=== PATIENT | female | born 2000 | race Caucasian/White ===

== ENCOUNTER 2023-02-01 21:34 | Emergency (ER) | payer OTHER, SELFPAY ==
[2023-02-01 22:01] VITALS: BP 131/76; PULSE 56; RESP 18; TEMP 36.6; O2SAT 98; BMI 36.2
[2023-02-01 22:45] LABS: Ur HCG Qualitative* Negative (Negative)
[2023-02-01 22:48] LABS: Bilirubin Urine Negative (Negative); Blood Urine Negative (Negative); Color Urine Yellow (Yellow); Glucose Urine Negative (Negative); Ketones Urine 4+ (Negative); Leukocyte Esterase Urine Negative (Negative); Nitrite Urine Negative (Negative); Protein Urine 1+ (Negative); Urobilinogen Urine 0.2 (0.2-1.0); pH Urine 8.5 (5.0-8.5)
[2023-02-01 22:52] LABS: Amphetamine Screen Urine Negative (Negative); Barbiturate Screen Urine Negative (Negative); Benzodiazepines Screen Urine Negative (Negative); Cannabinoid Screen Urine POSITIVE (Negative); Cocaine Screen Urine Negative (Negative); Methadone Screen Urine Negative (Negative); Methamphetamines Screen Urine Negative (Negative); Opiate Screen Urine Negative (Negative); Oxycodone Screen Urine Negative (Negative); Phencyclidine Screen Urine Negative (Negative); Tricyclic Antidepressant Urine Negative (Negative)
[2023-02-01 22:53] LABS: Appearance Urine Clear (Clear)
--- NOTE | 2023-02-01 22:55 | ED_ITS ---
HPI - Abdominal Pain General Date Seen: 02/01/23 Chief Complaint: Abdominal Pain Stated Complaint: stomach pains, vomitting Time Seen by Provider: 02/01/23 22:11 Source: patient and other (Significant other) Mode of arrival: ambulatory Limitations: no limitations History of Present Illness HPI narrative: Patient is a 22-year-old female who presents here with a 4-5 hour history of vomiting, she has vomited approximately 6 times, she feels sweaty, describes pain in her epigastric that radiates up into her chest. She is not vomiting up blood, does have a history of previous gastric sleeve surgery, she did have a normal bowel movement today, but feels maybe a on last few days she has been constipated. No history of fevers chills, but has felt chilled, no dysuria frequency associated with this, Other significant history of a cholecystectomy, she has been seen before at other hospitals for this min told that she has hyperemesis cannabis. She however disputes this diagnosis. When I asked her is a possible she is she said yes. Uses occasional alcohol he uses cannabis. But no other drugs. MD elicited complaint: abdominal pain Onset (ago): hour(s) Pain Consistency: constant Location: epigastric Severity: severe Quality: cramping, stabbing and fullness Radiation: none Migration to: no migration Exacerbating factors: movement Associated symptoms: nausea and vomiting Related Data Patient : No Home Medications Medication Instructions Recorded Confirmed desvenlafaxine succinate 50 mg 50 mg PO DAILY 02/01/23 02/01/23 tablet,extended release 24 hr omeprazole 40 mg capsule,delayed 40 mg PO DAILY 02/01/23 02/01/23 release Allergies Allergy/AdvReac Type Severity Reaction Status Date / Time NSAIDS (Non-Steroidal AdvReac Verified 02/01/23 22:03 Anti-Inflamma Review of Systems Status of ROS Reports: 10 or more systems reviewed and unremarkable except as noted in History and below PFSH PFSH Social History Smoking Status: Never smoker Do you use any of these nicotine containing products: None Second hand tobacco smoke exposure: No How often do you have a drink containing alcohol: never How often do you have six or more drinks on one occasion: Never AUDIT-C Alcohol total score: 0 Non-prescribed substance use: marijuana (any form) Non-prescribed substance use details: smokes marijuana daily; aware that this causes her to have hyperemesis service: No Exam Narrative: Exam Narrative: Patient is seen in room 2, she is sweaty, and find a comfortable position. Her pupils equal round reactive to light her TMs are normal oropharynx is normal her neck is supple, her chest is good air entry bilaterally heart sounds are normal her abdomen is soft, and doughy, there is no evidence of any significant peritoneal signs, and her bowel sounds are quiet. She is not distended. No CVA tenderness, previous laparoscopic portals are well healed. She moves all extremities independently and well. Skin reveals no petechiae rashes. Const: Vital Signs, click to edit/add: Vital Signs - 24 hr 02/01/23 22:01 Temperature 97.9 F Pulse Rate [Left P ulse Oximeter] 56 L Respiratory Rate 18 Blood Pressure [Le ft Upper Arm] 131/76 Pulse Oximetry 98 Oxygen Delivery Me thod Room Air Documenting provider has reviewed patient's vital signs: yes Course Course ED Course: I went back in and discussed with the patient, her laboratory was shows that she has just a slightly elevated lactate, she feels much improved in a actually would like to go home, we did have the radiology read back yet, but I did not see any acute issues associated with the radiology flat and upright abdominal film and chest x-ray. Given her marvelous response to the treatment, makes me feel that this is indeed hyperemesis cannabis syndrome. I discussed with her that she needs to stop using marijuana as this will reoccur for sure Unfortunately due to the dizziness the ER was not able to get the discharge data and right away in 15 minutes later she walked out of the ER. Without the discharge information Vital Signs Vital signs: Initial Vital Signs Temperature 97.9 F 02/01/23 22:01 Temperature Source Temporal Artery Scan 02/01/23 22:01 Pulse Rate 56 L 02/01/23 22:01 Respiratory Rate 18 02/01/23 22:01 Blood Pressure 131/76 02/01/23 22:01 Blood Pressure Mean 94 02/01/23 22:01 Blood Pressure Position Sitting 02/01/23 22:01 Pulse Oximetry 98 02/01/23 22:01 Oxygen Delivery Method Room Air 02/01/23 22:01 Vital Signs Temperature 97.9 F 02/01/23 22:01 Pulse Rate 56 L 02/01/23 22:01 Respiratory Rate 18 02/01/23 22:01 Blood Pressure 131/76 02/01/23 22:01 Pulse Oximetry 98 02/01/23 22:01 Oxygen Delivery Method Room Air 02/01/23 22:01 Temperature 97.9 F 02/01/23 22:01 Pulse Rate 56 L 02/01/23 22:01 Respiratory Rate 18 02/01/23 22:01 Blood Pressure 131/76 02/01/23 22:01 Pulse Oximetry 98 02/01/23 22:01 Oxygen Delivery Method Room Air 02/01/23 22:01 MDM - Abdominal Pain MDM Narrative Medical decision making narrative: During the evaluation of this patient I considered multiple differential diagnosis including life-threatening differentials which are appendicitis, aortic aneurysm, mesenteric ischemia, bowel perforation, ectopic , volvulus and bowel obstruction, other differential diagnosis include but are not limited to inflammatory bowel disease, cholecystitis, pancreatitis, hepatitis, gastritis, GERD, diverticulitis, peptic ulcer disease, pyelonephritis/UTI, renal colic/stone, pelvic inflammatory disease, cervicitis, endometritis, intrauterine , dysfunctional uterine bleeding, ovarian cyst/torsion, spontaneous as well as other etiologies Medical Records Attestation: I reviewed the patient's medical records. Lab Data Attestation: I reviewed the patient's lab results. Labs: Lab Results 02/01/23 02/01/23 02/01/23 Range/Units 22:35 22:52 22:59 WBC 12.98 H (4.50-11.00) K/uL RBC 4.93 (4.00-5.20) m/uL Hgb 14.9 (12.0-16.0) gm/dL Hct 43.7 (33.0-51.0) % MCV 89 (80-100) fL MCH 30 (26-34) pg MCHC 34 (32-36) gm/dL RDW Coeff of Oniel 12.1 (11.5-15.5) % Plt Count 365 (140-440) K/uL Neut % (Auto) 83.2 H (42.0-72.0) % Lymph % (Auto) 11.2 L (20-44) % Wilkes % (Auto) 3.9 (0.0-11.0) % Eos % (Auto) 0.5 (0.0-7.0) % Baso % (Auto) 0.4 (0.0-3.0) % Neut # (Auto) 10.80 H (1.7-7.0) K/uL Lymph # (Auto) 1.50 (0.90-2.90) K/uL Wilkes # (Auto) 0.50 (0.00-0.90) K/UL Eos # (Auto) 0.10 (0.00-0.50) K/uL Baso # (Auto) 0.10 (0.00-0.30) K/uL Abs Immat Gran (auto) 0.10 (0.00-0.30) K/uL Imm/Tot Granulo (auto) 0.8 % Sodium 141 (135-149) mmol/L Potassium 3.8 (3.6-5.1) mmol/L Chloride 109 (96-114) mmol/L Carbon Dioxide 17 L (20-32) mmol/L Anion Gap 15 (7-15) mEq/L BUN 10 (5-24) mg/dL Creatinine 0.6 (0.5-1.5) mg/dL Estimated Creat Clear 151.10 Estimated GFR 128 ml/min Glucose 144 H (60-115) mg/dL Lactate 2.7 H (0.5-1.9) mmol/L Calcium 10.8 H (8.4-10.6) mg/dL Urine Color Yellow (Yellow) Urine Appearance Clear (Clear) Urine pH 8.5 (5.0-8.5) Ur Specific [place] 1.020 (1.000-1.030) Urine Protein 1+ A (Negative) Urine Glucose (UA) Negative (Negative) Urine Ketones 4+ A (Negative) Urine Blood Negative (Negative) Urine Nitrite Negative (Negative) Urine Bilirubin Negative (Negative) Urine Urobilinogen 0.2 (0.2-1.0) Ur Leukocyte Esterase Negative (Negative) Urine RBC 0-2 (0-2) Urine WBC 2-5 (0-5) Ur Squamous Epith Cells Moderate A (None-Few) Urine Bacteria Moderate A (None) Urine HCG, Qual Negative (Negative) Urine Opiates Screen Negative (Negative) Ur Oxycodone Screen Negative (Negative) Urine Methadone Screen Negative (Negative) Ur Propoxyphene Screen Negative (Negative) Ur Barbiturates Screen Negative (Negative) U Tricyclic Antidepress Negative (Negative) Ur Phencyclidine Scrn Negative (Negative) Ur Amphetamines Screen Negative (Negative) U Methamphetamines Scrn Negative (Negative) U Benzodiazepines Scrn Negative (Negative) Urine Cocaine Screen Negative (Negative) U Marijuana (THC) Screen POSITIVE A (Negative) Ur Drug Screen Comment See Note Ethyl Alcohol < 0.01 L (0.01-0.03) % SARS-CoV-2 (PCR) Negative SARS-CoV-2 (Negative) Influenza Type A (PCR) Negative PCR FLU A (Negative) Influenza Type B (PCR) Negative PCR FLU B (Negative) RSV (PCR) Negative PCR RSV (Negative) Discharge Plan Discharge Clinical Impression: Cannabis hyperemesis syndrome concurrent with and due to cannabis abuse Patient Disposition: Home w/ Parent or Adult Condition: Improved Instructions: Cannabis Use Disorder (ED) Additional Instructions: Home rest fluids, avoidance of use of marijuana. Follow-up as needed Activity Level: Light activity Discharge Diet: Regular Prescriptions: No Action omeprazole 40 mg capsule,delayed release(DR/EC) 40 mg PO DAILY desvenlafaxine succinate 50 mg tablet extended release 24 hr 50 mg PO DAILY Follow Up/Referrals: Anette Garcia PA-C [Primary Care Provider] - Stand Alone Forms: [facility] Info Instructions
[2023-02-01 22:59] LABS: Bacteria Urine Moderate; RBC Urine 0-2 (0-2); Squamous Epithelial Cell Urine Moderate (None-Few)
[2023-02-01] MEDS: 0.9 % SODIUM CHLORIDE 1000 ml 1,000 ML IV (23:01)
[2023-02-01 23:03] LABS: Lactate* 2.7 mmol/L (0.5-1.9)
--- NOTE | 2023-02-01 23:04 | CRLHL7_ITS ---
For Patients: As a result of the Century Cures Act, medical imaging exams and procedure reports are released immediately into your electronic medical record. You may view this report before your referring provider. If you have questions, please contact your health care provider. Indication: Epigastric pain.. Technique: Abdomen 4 view. Comparison: None. Findings/impression: No intra-abdominal free air is identified. Normal bowel gas pattern. Clips in the left upper quadrant may be related to gastric bypass. Right quadrant clips may related to cholecystectomy. Has IUD noted within the pelvis. Additional 2 cylindrical shaped radiopaque densities identified in the lower abdomen/pelvis on the lower supine view of unknown etiology. Average colonic stool volume. Heart size within normal limits. Lungs are clear. The osseous structures are unremarkable for age. Dictated by Alexis Bronson MD @ 02/01/2023 11:51:04 PM (Electronically Signed)
[2023-02-01] MEDS: diphenhydrAMINE 25 MG in 0.9 % SODIUM CHLORIDE 100 ml 100 ML 402 MG IVPB (23:15)
[2023-02-01 23:18] LABS: Chloride* 109 mmol/L (96-114)
[2023-02-01] MEDS: droperidoL 2.5 MG/ML inj IV (23:18)
[2023-02-01 23:19] LABS: Potassium* 3.8 mmol/L (3.6-5.1); Sodium* 141 mmol/L (135-149)
[2023-02-01 23:21] LABS: Creatinine* 0.6 mg/dL (0.5-1.5); Estimated Glomerular Filt Rate 128 ml/min
[2023-02-01 23:22] LABS: Anion Gap 15 mEq/L (7-15); Basophils Percent Auto 0.4 % (0.0-3.0); Blood Urea Nitrogen* 10 mg/dL (5-24); Calcium* 10.8 mg/dL (8.4-10.6); Carbon Dioxide* 17 mmol/L (20-32); Eosinophils Percent Auto 0.5 % (0.0-7.0); Ethanol* < 0.01 % (0.01-0.03); Hematocrit 43.7 % (33.0-51.0); Hemoglobin* 14.9 gm/dL (12.0-16.0); Immature Granulocytes Pct Auto 0.8 %; Lymphocytes Percent Auto 11.2 % (20-44); Mean Corpuscular HGB Conc 34 gm/dL (32-36); Mean Corpuscular Hemoglobin 30 pg (26-34); Mean Corpuscular Volume 89 fL (80-100); Monocytes Percent Auto 3.9 % (0.0-11.0); Neutrophils Percent Auto 83.2 % (42.0-72.0); Platelet Count* 365 K/uL (140-440); RDW Coefficient of Variation % 12.1 % (11.5-15.5); Red Blood Count 4.93 m/uL (4.00-5.20); White Blood Count* 12.98 K/uL (4.50-11.00)
[2023-02-01 23:23] LABS: Slide Review Reflex No
[2023-02-01 23:26] LABS: Glucose* 144 mg/dL (60-115)
[2023-02-01] MEDS: ONDANSETRON 2 MG/ML inj IVP ×2 (23:26)
[2023-02-01 23:42] LABS: PCR FLU A Negative PCR FLU A (Negative); PCR FLU B Negative PCR FLU B (Negative); PCR RSV Negative PCR RSV (Negative)
[2023-02-01 23:53] LABS: SARS PCR* Negative SARS-CoV-2 (Negative)
--- NOTE | 2023-02-02 00:22 | ED.NURSE ---
Patient left prior to discharge instructions being given. Stated she did not want to wait for paperwork and that she had to get home. IV removed by patient, confirmed by this blog writer. Patient reports feeling better. Dr. Adam notified.
== END 2023-02-02 00:18 | disposition home or self-care (01) ==
PROVIDERS: Emergency Provider Family Medicine; PCP Physician Assistant
DX: R11.10 Vomiting, unspecified (principal); F12.920 Cannabis use, unspecified with intoxication, uncomplicated
CPT/HCPCS: 36415; 74022; 80048; 80306; 81001; 81025; 82077; 83605; 85025; 87086; 87631; 99284; J1200; J1790; J2405; J7030

== ENCOUNTER 2023-10-01 22:01 | Emergency (ER) | payer BC, SELFPAY ==
[2023-10-01 22:04] VITALS: BP 148/84; PULSE 61; RESP 22; TEMP 36.7; O2SAT 100; BMI 36.9
--- NOTE | 2023-10-01 22:28 | ED.GENADULT ---
HPI - General Adult General Date Seen: 10/01/23 <Anette Chavez MD - Last Filed: 10/04/23 10:02> Chief complaint: Abdominal Pain <Anette Chavez MD - Last Filed: 10/04/23 10:02> Stated complaint: Abdominal Pain, Nausea <MD Jolene Shannon Last Filed: 10/04/23 10:02> Time Seen by Provider: 10/01/23 22:11 <Anette Chavez MD - Last Filed: 10/04/23 10:02> Source: patient, RN notes reviewed and old records reviewed <MD Jolene Shannon Last Filed: 10/04/23 10:02> Mode of arrival: ambulatory <MD Jolene Shannon Last Filed: 10/04/23 10:02> Limitations: no limitations <MD Jolene Shannon Last Filed: 10/04/23 10:02> History of Present Illness HPI narrative: Patient is a 23-year-old here with her for evaluation of nausea and vomiting. This has been going on for 3 days. She has had some intermittent abdominal discomfort she says but no significant pain. No diarrhea or bloody stools. Her says she just has not been able to keep anything down. She has had previous episodes like this, has been seen here in at other facilities and told that this is hyperemesis related to her cannabis use. She acknowledges that this episode is identical to previous episodes, but also says that she does not believe marijuana use to be causative. She has an IUD, no specific suspicion of . No fevers. No urinary symptoms. She says she is basically here for IVs. <Anette Chavez MD - Last Filed: 10/04/23 10:02> Related Data Home medications: Home Medications ?Medication ?Instructions ?Recorded ?Confirmed desvenlafaxine succinate 50 mg 50 mg PO DAILY 02/01/23 02/01/23 tablet,extended release 24 hr omeprazole 40 mg capsule,delayed 40 mg PO DAILY 02/01/23 02/01/23 release <MD Jolene Shannon Last Filed: 10/04/23 10:02> Allergies/adverse reactions: Allergies Allergy/AdvReac Type Severity Reaction Status Date / Time NSAIDS (Non-Steroidal AdvReac Verified 02/01/23 22:03 Anti-Inflamma <Anette Chavez MD - Last Filed: 10/04/23 10:02> Review of Systems Status of ROS: Reports: 10 or more systems reviewed and unremarkable except as noted in History and below <Anette Chavez MD - Last Filed: 10/04/23 10:02> [facility] Social History: Social History Smoking Status: Never smoker Do you use any of these nicotine containing products: None Second hand tobacco smoke exposure: No How often do you have a drink containing alcohol: never How often do you have six or more drinks on one occasion: Never AUDIT-C Alcohol total score: 0 Non-prescribed substance use: marijuana (any form) Non-prescribed substance use details: smokes marijuana daily; aware that this causes her to have hyperemesis service: No <Anette Chavez MD - Last Filed: 10/04/23 10:02> Exam Narrative: Exam Narrative: Vital signs as noted above. In general, an alert, well-appearing patient. Head: Normocephalic, atraumatic. Eyes: Pupils are equal reactive. Extraocular movements are full. Conjunctivae are normal. ENT: Mucous membranes are slightly dry. Neck: Supple without lymphadenopathy. Heart: Regular rate and rhythm. No murmur or rub. Lungs: Clear bilaterally. No increased work of breathing, crackles or wheezes. Abdomen: Soft and nontender. Nondistended. Bowel sounds present. Extremities: Well perfused. No edema. No calf tenderness. Pulses intact. Neurologic: Patient is alert and oriented to person and place. Speech is fluent. Face is symmetric. Moves all extremities equally. Affect: Normal. Skin: Warm and dry. Well perfused. <Anette Chavez MD - Last Filed: 10/04/23 10:02> Const: Vital Signs, click to edit/add: Vital Signs - 24 hr 10/01/23 22:04 Temperature 98.1 F Pulse Rate [Left P ulse Oximeter] 61 Respiratory Rate 22 Blood Pressure [Ri ght Upper Arm] 148/84 H Pulse Oximetry 100 Oxygen Delivery Me thod Room Air <Anette Chavez MD - Last Filed: 10/04/23 10:02> Vital Signs, click to edit/add: Vital Signs - 24 hr 10/01/23 22:04 Temperature 98.1 F Pulse Rate [Left P ulse Oximeter] 61 Respiratory Rate 22 Blood Pressure [Ri ght Upper Arm] 148/84 H Pulse Oximetry 100 Oxygen Delivery Me thod Room Air <Leonel Rayo MD - Last Filed: 10/02/23 00:31> Documenting provider has reviewed patient's vital signs: yes <Anette Chavez MD - Last Filed: 10/04/23 10:02> Course Course ED Course: Will place an IV, give 5 Zyprexa and 4 of Zofran as well as a L of normal saline. I will check a metabolic panel she says she has had problems with electrolytes in the past. UA UPT ordered. She had significant lab work done last time without remarkable findings aside from a lactate of 2.7 and a CO2 of 17, consistent with dehydration. Labs tonight show a normal CO2 of 22, potassium is 3.6. BUN creatinine normal. Blood sugar 119. She feels improved after medications, no further nausea or vomiting. UA and UPT are pending at this time, if those are negative, reasonable to discharge home. Symptoms are compatible with prior episodes of cyclic vomiting. Again encouraged cessation of marijuana. Return for worsening or new symptoms. <Anette Chavez MD - Last Filed: 10/04/23 10:02> Reevaluation(s) Time of Reevaluation #1: 00:30 <Leonel Rayo MD - Last Filed: 10/02/23 00:31> Reevaluation #1: Patient is requesting discharge, does not want to wait for test. <Leonel Rayo MD - Last Filed: 10/02/23 00:31> Time of Reevaluation #2: 00:30 <Leonel Rayo MD - Last Filed: 10/02/23 00:31> Vital Signs Vital signs: Initial Vital Signs Temperature 98.1 F 10/01/23 22:04 Temperature Source Temporal Artery Scan 10/01/23 22:04 Pulse Rate 61 10/01/23 22:04 Pulse Rhythm Regular 10/01/23 22:04 Respiratory Rate 22 10/01/23 22:04 Blood Pressure 148/84 H 10/01/23 22:04 Blood Pressure Mean 105 10/01/23 22:04 Blood Pressure Position Sitting 10/01/23 22:04 Pulse Oximetry 100 10/01/23 22:04 Oxygen Delivery Method Room Air 10/01/23 22:04 Vital Signs Temperature 98.1 F 10/01/23 22:04 Pulse Rate 61 10/01/23 22:04 Respiratory Rate 22 10/01/23 22:04 Blood Pressure 148/84 H 10/01/23 22:04 Pulse Oximetry 100 10/01/23 22:04 Oxygen Delivery Method Room Air 10/01/23 22:04 Temperature 98.1 F 10/01/23 22:04 Pulse Rate 61 10/01/23 22:04 Respiratory Rate 22 10/01/23 22:04 Blood Pressure 148/84 H 10/01/23 22:04 Pulse Oximetry 100 10/01/23 22:04 Oxygen Delivery Method Room Air 10/01/23 22:04 <Anette Chavez MD - Last Filed: 10/04/23 10:02> Initial Vital Signs Temperature 98.1 F 10/01/23 22:04 Temperature Source Temporal Artery Scan 10/01/23 22:04 Pulse Rate 61 10/01/23 22:04 Pulse Rhythm Regular 10/01/23 22:04 Respiratory Rate 22 10/01/23 22:04 Blood Pressure 148/84 H 10/01/23 22:04 Blood Pressure Mean 105 10/01/23 22:04 Blood Pressure Position Sitting 10/01/23 22:04 Pulse Oximetry 100 10/01/23 22:04 Oxygen Delivery Method Room Air 10/01/23 22:04 Vital Signs Temperature 98.1 F 10/01/23 22:04 Pulse Rate 61 10/01/23 22:04 Respiratory Rate 22 10/01/23 22:04 Blood Pressure 148/84 H 10/01/23 22:04 Pulse Oximetry 100 10/01/23 22:04 Oxygen Delivery Method Room Air 10/01/23 22:04 Temperature 98.1 F 10/01/23 22:04 Pulse Rate 61 10/01/23 22:04 Respiratory Rate 22 10/01/23 22:04 Blood Pressure 148/84 H 10/01/23 22:04 Pulse Oximetry 100 10/01/23 22:04 Oxygen Delivery Method Room Air 10/01/23 22:04 <Leonel Rayo MD - Last Filed: 10/02/23 00:31> Medications Administered Medications: Discontinued Medications Generic Name Dose Route Start Last Admin Trade Name Freq PRN Reason Stop Dose Admin Famotidine 20 mg 10/02/23 00:28 10/02/23 00:35 Famotidine 10 Mg/Ml Inj IVP 10/02/23 00:29 20 mg ONCE ONE Administration Sodium Chloride 1,000 mls @ 1,000 mls/hr 10/01/23 22:30 10/02/23 00:14 0.9 % Sodium Chloride 1000 Ml IV 10/01/23 23:29 Infused .Q1H ARNOLDO Infusion Olanzapine 5 mg 10/01/23 22:18 10/01/23 22:41 Olanzapine 5 Mg/Ml Inj IVP 10/01/23 22:19 5 mg ONCE ONE Administration Ondansetron HCl 4 mg 10/01/23 22:18 10/01/23 22:41 Ondansetron 2 Mg/Ml Inj IVP 10/01/23 22:19 4 mg ONCE ONE Administration Ondansetron HCl 4 mg 10/02/23 00:11 10/02/23 00:30 Ondansetron 2 Mg/Ml Inj IVP 10/02/23 00:12 4 mg ONCE ONE Administration <Anette Chavez MD - Last Filed: 10/04/23 10:02> Discontinued Medications Generic Name Dose Route Start Last Admin Trade Name Freq PRN Reason Stop Dose Admin Famotidine 20 mg 10/02/23 00:28 10/02/23 00:35 Famotidine 10 Mg/Ml Inj IVP 10/02/23 00:29 20 mg ONCE ONE Administration Sodium Chloride 1,000 mls @ 1,000 mls/hr 10/01/23 22:30 10/02/23 00:14 0.9 % Sodium Chloride 1000 Ml IV 10/01/23 23:29 Infused .Q1H ARNOLDO Infusion Olanzapine 5 mg 10/01/23 22:18 10/01/23 22:41 Olanzapine 5 Mg/Ml Inj IVP 10/01/23 22:19 5 mg ONCE ONE Administration Ondansetron HCl 4 mg 10/01/23 22:18 10/01/23 22:41 Ondansetron 2 Mg/Ml Inj IVP 10/01/23 22:19 4 mg ONCE ONE Administration Ondansetron HCl 4 mg 10/02/23 00:11 10/02/23 00:30 Ondansetron 2 Mg/Ml Inj IVP 10/02/23 00:12 4 mg ONCE ONE Administration <Leonel Rayo MD - Last Filed: 10/02/23 00:31> Medical Decision Making Lab Data Labs: Lab Results 10/01/23 Range/Units 22:38 Sodium 138 (135-149) mmol/L Potassium 3.6 (3.6-5.1) mmol/L Chloride 106 (96-114) mmol/L Carbon Dioxide 22 (20-32) mmol/L Anion Gap 10 (7-15) mEq/L BUN 15 (5-24) mg/dL Creatinine 0.7 (0.5-1.5) mg/dL Estimated Creat Clear 128.39 Estimated GFR 123 ml/min Glucose 119 H (60-115) mg/dL Calcium 10.4 (8.4-10.6) mg/dL <Anette Chavez MD - Last Filed: 10/04/23 10:02> Lab Results 10/01/23 Range/Units 22:38 Sodium 138 (135-149) mmol/L Potassium 3.6 (3.6-5.1) mmol/L Chloride 106 (96-114) mmol/L Carbon Dioxide 22 (20-32) mmol/L Anion Gap 10 (7-15) mEq/L BUN 15 (5-24) mg/dL Creatinine 0.7 (0.5-1.5) mg/dL Estimated Creat Clear 128.39 Estimated GFR 123 ml/min Glucose 119 H (60-115) mg/dL Calcium 10.4 (8.4-10.6) mg/dL <Leonel Rayo MD - Last Filed: 10/02/23 00:31> Discharge Plan Discharge Clinical Impression: Cyclical vomiting with nausea <Anette Chavez MD - Last Filed: 10/04/23 10:02> Patient Disposition: Home, Self-Care <Anette Chavez MD - Last Filed: 10/04/23 10:02> Condition: Improved <Anette Chavez MD - Last Filed: 10/04/23 10:02> Instructions: Cyclic Vomiting Syndrome (ED) <Anette Chavez MD - Last Filed: 10/04/23 10:02> Additional Instructions: Continue to recommend cessation of marijuana use. Return as needed or for worsening symptoms. <Anette Chavez MD - Last Filed: 10/04/23 10:02> Prescriptions: No Action omeprazole 40 mg capsule,delayed release(DR/EC) 40 mg PO DAILY desvenlafaxine succinate 50 mg tablet extended release 24 hr 50 mg PO DAILY <Anette Chavez MD - Last Filed: 10/04/23 10:02> Follow Up/Referrals: Anette Garcia PA-C [Primary Care Provider] - <Anette Chavez MD - Last Filed: 10/04/23 10:02> Stand Alone Forms: [employer] Info Instructions <Anette Chavez MD - Last Filed: 10/04/23 10:02>
[2023-10-01] MEDS: 0.9 % SODIUM CHLORIDE 1000 ml 1,000 ML IV (22:41)
[2023-10-01] MEDS: ONDANSETRON 2 MG/ML inj 4 MG IVP (22:41)
[2023-10-01] MEDS: OLANZapine 5 MG/ML inj IVP (22:41)
[2023-10-01 23:00] LABS: Chloride* 106 mmol/L (96-114); Potassium* 3.6 mmol/L (3.6-5.1); Sodium* 138 mmol/L (135-149)
[2023-10-01 23:03] LABS: Anion Gap 10 mEq/L (7-15); Blood Urea Nitrogen* 15 mg/dL (5-24); Carbon Dioxide* 22 mmol/L (20-32); Creatinine* 0.7 mg/dL (0.5-1.5); Est. Creatinine Clearance* 128.39; Estimated Glomerular Filt Rate 123 ml/min
[2023-10-01 23:04] LABS: Calcium* 10.4 mg/dL (8.4-10.6); Glucose* 119 mg/dL (60-115)
[2023-10-02] MEDS: ONDANSETRON 2 MG/ML inj 4 MG IVP (00:30)
[2023-10-02] MEDS: FAMOTIDINE 10 MG/ML inj 20 MG IVP (00:35)
== END 2023-10-02 00:59 | disposition home or self-care (01) ==
PROVIDERS: Emergency Provider Emergency Medicine; PCP Physician Assistant
DX: R11.15 Cyclical vomiting syndrome unrelated to migraine (principal)
CPT/HCPCS: 36415; 80048; 81001; 81025; 96374; 96375; 99283; 99284; J2405; J7030; S0028

== ENCOUNTER 2024-02-25 03:55 | Emergency (ER) | payer BC, SELFPAY ==
[2024-02-25 04:01] VITALS: BP 140/90; PULSE 71; RESP 20; TEMP 37.3; O2SAT 100; BMI 35.9
[2024-02-25] MEDS: LORazepam 2 MG/ML inj 1 MG IVP (04:09)
[2024-02-25] MEDS: 0.9 % SODIUM CHLORIDE 1000 ml 1,000 ML IV (04:10)
[2024-02-25] MEDS: ONDANSETRON 2 MG/ML inj 4 MG IVP (04:10)
[2024-02-25 04:15] VITALS: O2SAT 100
[2024-02-25] MEDS: OLANZapine 5 MG/ML inj IVP (04:30)
--- NOTE | 2024-02-25 05:00 | ED.GENADULT ---
HPI - General Adult General Chief complaint: Nausea/Vomiting Stated complaint: Abdominal pain History of Present Illness HPI narrative: Patient is a 23-year-old woman with history of cannabis hyperemesis syndrome who presents with nausea and vomiting. She has had no blood in her vomitus she has no diarrhea. No significant abdominal pain no fevers no chills no night sweats. She has been smoking marijuana more intensely the last few days. She is unable to keep up with her symptoms at home with Zofran. No other related symptoms no injuries no complaints otherwise. Related Data Home Medications ?Medication ?Instructions ?Recorded ?Confirmed desvenlafaxine succinate 50 mg 50 mg PO DAILY 02/01/23 02/25/24 tablet,extended release 24 hr omeprazole 40 mg capsule,delayed 40 mg PO DAILY 02/01/23 02/25/24 release albuterol sulfate 90 mcg/actuation 2 inh inhalation BID 01/06/24 02/25/24 aerosol inhaler guanfacine 1 mg tablet 1 mg PO DAILY 01/06/24 02/25/24 methylphenidate HCl 10 mg tablet 10 mg PO BID 01/06/24 02/25/24 ondansetron 4 mg disintegrating 4 mg PO Q8H PRN 01/06/24 02/25/24 tablet methylphenidate HCl 36 mg 36 mg PO QAM 02/25/24 02/25/24 tablet,extended release 24 hr Previous Rx's ?Medication ?Instructions ?Recorded albuterol sulfate 2.5 mg/3 mL 2.5 mg (3 mL) inhalation Q4H #75 mL 01/06/24 (0.083 %) solution for nebulization Allergies Allergy/AdvReac Type Severity Reaction Status Date / Time NSAIDS (Non-Steroidal AdvReac Verified 02/25/24 04:05 Anti-Inflamma Review of Systems Status of ROS: Reports: 10 or more systems reviewed and unremarkable except as noted in History and below PFSH PFS Social History Smoking Status: Never smoker Do you use any of these nicotine containing products: None Second hand tobacco smoke exposure: No How often do you have a drink containing alcohol: never How often do you have six or more drinks on one occasion: Never AUDIT-C Alcohol total score: 0 Non-prescribed substance use: marijuana (any form) Non-prescribed substance use details: smokes marijuana daily; aware that this causes her to have hyperemesis service: No Exam Narrative: Exam Narrative: EXAM GENERAL: Patient appears comfortable and well. EYES: No scleral icterus. LYMPH: No supraclavicular or cervical lymphadenopathy. SKIN: Visible skin seen during exam normal or with benign process only. EXT: No dependent lower extremity pedal edema. HEART: Regular rate and rhythm with no murmurs, rubs, or gallops. LUNGS: Clear to auscultation bilaterally with no crackles or wheezes. ABD: Soft, non tender, non distended. PSYCH: Good eye contact, speech is not pressured. Const: Vital Signs, click to edit/add: Vital Signs - 24 hr 02/25/24 04:01 02/25/24 04:15 Temperature 99.2 F Pulse Rate [Right Pulse Oximeter] 71 Respiratory Rate 20 Blood Pressure [Le ft Upper Arm] 140/90 H Pulse Oximetry 100 100 Oxygen Delivery Me thod Room Air Course Course ED Course: Patient seen and examined. Vital Signs Vital signs: Initial Vital Signs Temperature 99.2 F 02/25/24 04:01 Temperature Source Temporal Artery Scan 02/25/24 04:01 Pulse Rate 71 02/25/24 04:01 Respiratory Rate 20 02/25/24 04:01 Blood Pressure 140/90 H 02/25/24 04:01 Blood Pressure Mean 106 H 02/25/24 04:01 Blood Pressure Position Sitting 02/25/24 04:01 Pulse Oximetry 100 02/25/24 04:01 Oxygen Delivery Method Room Air 02/25/24 04:01 Vital Signs Temperature 99.2 F 02/25/24 04:01 Pulse Rate 71 02/25/24 04:01 Respiratory Rate 20 02/25/24 04:01 Blood Pressure 140/90 H 02/25/24 04:01 Pulse Oximetry 100 02/25/24 04:01 Oxygen Delivery Method Room Air 02/25/24 04:01 Temperature 99.2 F 02/25/24 04:01 Pulse Rate 71 02/25/24 04:01 Respiratory Rate 20 02/25/24 04:01 Blood Pressure 140/90 H 02/25/24 04:01 Pulse Oximetry 100 02/25/24 04:15 Oxygen Delivery Method Room Air 02/25/24 04:01 Medications Administered Medications: Generic Name Dose Route Start Last Admin Trade Name Freq PRN Reason Stop Dose Admin Sodium Chloride 1,000 mls @ 1,000 mls/hr 02/25/24 04:05 02/25/24 04:10 0.9 % Sodium Chloride 1000 Ml IV 02/25/24 05:04 1,000 mls/hr .Q1H ARNOLDO Administration Ondansetron HCl 4 mg 02/25/24 04:05 02/25/24 04:10 Ondansetron 2 Mg/Ml Inj IVP 4 mg ONCE PRN Administration Discontinued Medications Generic Name Dose Route Start Last Admin Trade Name Freq PRN Reason Stop Dose Admin Lorazepam 1 mg 02/25/24 04:06 02/25/24 04:09 Lorazepam 2 Mg/Ml Inj IVP 02/25/24 04:07 1 mg ONCE ONE Administration Medical Decision Making [facility] Narrative Medical decision making narrative: Patient is a 23-year-old woman with the known cannabis hyperemesis syndrome who presents with nausea and vomiting. We did treated with IV normal saline and Ativan as well as Zofran with moderate improvement. She requests Zyprexa which has helped her in the past and she has had significant resolution of her symptoms with 5 mg of eye be Zyprexa. At this time she will be discharged her to home to avoid cannabis continue with Zofran as needed and follow-up with her primary physician as needed as well. Discharge Plan Discharge Clinical Impression: Vomiting Patient Disposition: Home, Self-Care Condition: Stable Instructions: Acute Nausea and Vomiting (ED) Activity Level: No Restrictions Discharge Diet: Regular Prescriptions: No Action guanfacine 1 mg tablet 1 mg PO DAILY methylphenidate HCl 10 mg tablet 10 mg PO BID ondansetron 4 mg tablet,disintegrating 4 mg PO Q8H PRN albuterol sulfate 90 mcg/actuation HFA aerosol inhaler 2 inh inhalation BID albuterol sulfate 2.5 mg /3 mL (0.083 %) solution for nebulization 2.5 mg inhalation Q4H Qty: 75 0RF omeprazole 40 mg capsule,delayed release(DR/EC) 40 mg PO DAILY desvenlafaxine succinate 50 mg tablet extended release 24 hr 50 mg PO DAILY methylphenidate HCl 36 mg tablet extended release 24hr 36 mg PO QAM Follow Up/Referrals: Anette Garcia PA-C [Primary Care Provider] - Stand Alone Forms: [employer] Info Instructions
[2024-02-25 05:15] VITALS: BP 124/74; PULSE 74; RESP 20; TEMP 36.7; O2SAT 100
== END 2024-02-25 05:15 | disposition home or self-care (01) ==
PROVIDERS: Emergency Provider Internal Medicine; PCP Physician Assistant
DX: R11.10 Vomiting, unspecified (principal)
CPT/HCPCS: 94761; 96374; 96375; 99283; 99284; J2060; J2405; J7030

== ENCOUNTER 2024-02-27 10:03 | Emergency (ER) | payer BC, SELFPAY ==
[2024-02-27 10:12] VITALS: BP 127/95; PULSE 64; RESP 20; TEMP 37.4; O2SAT 99; BMI 35.9
--- NOTE | 2024-02-27 10:48 | CRLHL7_ITS ---
For Patients: As a result of the Century Cures Act, medical imaging exams and procedure reports are released immediately into your electronic medical record. You may view this report before your referring provider. If you have questions, please contact your health care provider. Indication: Nausea, vomiting Technique: Abdomen 3 view. Comparison: None. Findings/Impression: Bowel: Nonobstructive bowel gas pattern. Soft tissues: No sign of free air. Clips in the left upper quadrant. Cholecystectomy clips. IUD in the pelvis. No suspicious calcifications. Bones: Unremarkable for age. Dictated by Belinda Dee MD @ 02/27/2024 12:56:11 PM (Electronically Signed)
--- NOTE | 2024-02-27 11:08 | ED.GENADULT ---
HPI - General Adult General Chief complaint: Nausea/Vomiting Stated complaint: Abdominal pain, nausea Time Seen by Provider: 02/27/24 10:40 Source: patient Mode of arrival: ambulatory Limitations: no limitations History of Present Illness HPI narrative: 23-year-old female with history of cannabis hyperemesis syndrome presenting today with vomiting. Patient was seen 2 days ago for the same problem. Patient states she has been vomiting for 5 days now nonstop. Sometimes she can keep a little bit of water down for the most part she cannot. The last time she smoked marijuana was on Wednesday of this week 2 days before all her symptoms began again. Patient denies being . She states that she has mild epigastric pain specially when she vomits. She feels weak, lightheaded. She states that Zyprexa has worked well for her in the past and that is what she got 2 days ago and felt better for about a day before all her symptoms returned. She denies any blood in her vomit. She denies any urinary symptoms such as frequency, urgency or dysuria. She does complain of constipation. States she has not had a bowel movement in 5 days. Related Data Home Medications ?Medication ?Instructions ?Recorded ?Confirmed desvenlafaxine succinate 50 mg 50 mg PO DAILY 02/01/23 02/25/24 tablet,extended release 24 hr omeprazole 40 mg capsule,delayed 40 mg PO DAILY 02/01/23 02/25/24 release albuterol sulfate 90 mcg/actuation 2 inh inhalation BID 01/06/24 02/25/24 aerosol inhaler guanfacine 1 mg tablet 1 mg PO DAILY 01/06/24 02/25/24 methylphenidate HCl 10 mg tablet 10 mg PO BID 01/06/24 02/25/24 ondansetron 4 mg disintegrating 4 mg PO Q8H PRN 01/06/24 02/25/24 tablet methylphenidate HCl 36 mg 36 mg PO QAM 02/25/24 02/25/24 tablet,extended release 24 hr Previous Rx's ?Medication ?Instructions ?Recorded albuterol sulfate 2.5 mg/3 mL 2.5 mg (3 mL) inhalation Q4H #75 mL 01/06/24 (0.083 %) solution for nebulization olanzapine 5 mg tablet (Zyprexa) 5 mg PO DAILY PRN #2 tabs 02/27/24 Allergies Allergy/AdvReac Type Severity Reaction Status Date / Time NSAIDS (Non-Steroidal AdvReac Verified 02/25/24 04:05 Anti-Inflamma Review of Systems Status of ROS: Reports: 10 or more systems reviewed and unremarkable except as noted in History and below [facility] Social History Smoking Status: Current some day smoker Do you use any of these nicotine containing products: Vaping Products Second hand tobacco smoke exposure: No How often do you have a drink containing alcohol: 2-4 times a month How many standard drinks containing alcohol do you have on a typical day: 3 or 4 How often do you have six or more drinks on one occasion: Monthly AUDIT-C Alcohol total score: 5 Non-prescribed substance use: marijuana (any form) Non-prescribed substance use details: smokes marijuana daily; aware that this causes her to have hyperemesis service: No Exam Narrative: Exam Narrative: Well-nourished well-developed patient , uncomfortable. Disheveled. Alert and oriented. Answers questions appropriately. Mood and affect are appropriate. Thoughts are goal oriented and rational. No tangential or magical thinking noted. Patient speaks in full sentences without needing to catch her breath. HEENT: Normocephalic atraumatic. Pupils are equally round reactive to light. Extraocular muscles are intact. Conjunctivae are moist without any icterus noted. Dry mucous membranes. Posterior pharynx is normal. Neck is soft without any lymphadenopathy or thyromegaly. No masses are appreciated. Cardiovascular: Heart is regular rate and rhythm S1 and S2 are present without any murmurs. Lungs: Clear to auscultation bilaterally no wheezes rhonchi or rales are appreciated. Patient takes deep breaths without any discomfort. Abdomen: Soft and nondistended with normal bowel sounds. No guarding or rebound. No masses or organomegaly appreciated. She does have some mild epigastric discomfort. Extremities: Bilateral lower extremities are without edema. Normal DP and PT pulses. Skin: Well perfused. Const: Vital Signs, click to edit/add: Vital Signs - 24 hr 02/27/24 10:12 Temperature 99.3 F Pulse Rate [Pulse Oximeter] 64 Respiratory Rate 20 Blood Pressure [Ri ght Upper Arm] 127/95 H Pulse Oximetry 99 Oxygen Delivery Me thod Room Air Course Course ED Course: IV is established and patient given 500 mL of normal saline, Zofran, 5 mg of IV Zyprexa. Labs were drawn: CBC shows a slightly elevated white cell count 13.56. Sodium slightly low at 134, potassium slightly low at 3.4. Remainder of chemistries are unremarkable. Negative test. X-ray of the abdomen was done, flat and upright: Unremarkable. Patient felt better after treatment and had no more episodes of vomiting while she was here. Vital Signs Vital signs: Initial Vital Signs Temperature 99.3 F 02/27/24 10:12 Temperature Source Temporal Artery Scan 02/27/24 10:12 Pulse Rate 64 02/27/24 10:12 Pulse Rhythm Regular 02/27/24 10:12 Respiratory Rate 20 02/27/24 10:12 Blood Pressure 127/95 H 02/27/24 10:12 Blood Pressure Mean 105 02/27/24 10:12 Blood Pressure Position Supine 02/27/24 10:12 Pulse Oximetry 99 02/27/24 10:12 Oxygen Delivery Method Room Air 02/27/24 10:12 Vital Signs Temperature 99.3 F 02/27/24 10:12 Pulse Rate 64 02/27/24 10:12 Respiratory Rate 20 02/27/24 10:12 Blood Pressure 127/95 H 02/27/24 10:12 Pulse Oximetry 99 02/27/24 10:12 Oxygen Delivery Method Room Air 02/27/24 10:12 Temperature 99.3 F 02/27/24 10:12 Pulse Rate 64 02/27/24 10:12 Respiratory Rate 20 02/27/24 10:12 Blood Pressure 127/95 H 02/27/24 10:12 Pulse Oximetry 99 02/27/24 10:12 Oxygen Delivery Method Room Air 02/27/24 10:12 Medications Administered Medications: Discontinued Medications Generic Name Dose Route Start Last Admin Trade Name Freq PRN Reason Stop Dose Admin Sodium Chloride 500 mls @ 500 mls/hr 02/27/24 10:47 02/27/24 11:09 0.9 % Sodium Chloride 500 Ml IV 02/27/24 11:46 500 mls/hr .Q1H ONE Administration Olanzapine 5 mg 02/27/24 10:47 02/27/24 11:09 Olanzapine 5 Mg/Ml Inj IVP 02/27/24 10:48 5 mg ONCE ONE Administration Ondansetron HCl 4 mg 02/27/24 10:47 02/27/24 11:09 Ondansetron 2 Mg/Ml Inj IVP 02/27/24 10:48 4 mg ONCE ONE Administration Medical Decision Making MDM Narrative Medical decision making narrative: 23-year-old female with cannabis hyperemesis syndrome. Medicine the patient home with 2 tablets of Zyprexa to get her through the next day or 2 if needed. We discussed abstaining from marijuana use again. Lab Data Lab results reviewed: Yes I reviewed the patient's lab results Labs: Lab Results 02/27/24 Range/Units 11:05 WBC 13.56 H (4.50-11.00) K/uL RBC 4.96 (4.00-5.20) m/uL Hgb 14.8 (12.0-16.0) gm/dL Hct 43.1 (33.0-51.0) % MCV 87 (80-100) fL MCH 30 (26-34) pg MCHC 34 (32-36) gm/dL RDW Coeff of Oniel 12.1 (11.5-15.5) % Plt Count 279 (140-440) K/uL Neut % (Auto) 69.9 (42.0-72.0) % Lymph % (Auto) 20.6 (20-44) % Sharp % (Auto) 8.9 (0.0-11.0) % Eos % (Auto) 0.1 (0.0-7.0) % Baso % (Auto) 0.3 (0.0-3.0) % Neut # (Auto) 9.50 H (1.7-7.0) K/uL Lymph # (Auto) 2.80 (0.90-2.90) K/uL Sharp # (Auto) 1.20 H (0.00-0.90) K/UL Eos # (Auto) 0.00 (0.00-0.50) K/uL Baso # (Auto) 0.00 (0.00-0.30) K/uL Abs Immat Gran (auto) 0.00 (0.00-0.30) K/uL Imm/Tot Granulo (auto) 0.2 % Sodium 134 L (135-149) mmol/L Potassium 3.4 L (3.6-5.1) mmol/L Chloride 101 (96-114) mmol/L Carbon Dioxide 22 (20-32) mmol/L Anion Gap 11 (7-15) mEq/L BUN 13 (5-24) mg/dL Creatinine 0.6 (0.5-1.5) mg/dL Estimated Creat Clear 155.00 Estimated GFR 128 ml/min Glucose 112 (60-115) mg/dL Calcium 9.8 (8.4-10.6) mg/dL HCG, Qual Negative (Negative) Discharge Plan Discharge Clinical Impression: Cannabis hyperemesis syndrome concurrent with and due to cannabis abuse Patient Disposition: Home, Self-Care Condition: Improved Additional Instructions: You should abstain from all marijuana use. You will be sent home with 2 tablets of Zyprexa to use as needed. Maintain good hydration with small amounts of fluid taken frequently throughout the day. Prescriptions: New olanzapine [Zyprexa] 5 mg tablet 5 mg PO DAILY PRNQty: 2 0RF No Action guanfacine 1 mg tablet 1 mg PO DAILY methylphenidate HCl 10 mg tablet 10 mg PO BID ondansetron 4 mg tablet,disintegrating 4 mg PO Q8H PRN albuterol sulfate 90 mcg/actuation HFA aerosol inhaler 2 inh inhalation BID albuterol sulfate 2.5 mg /3 mL (0.083 %) solution for nebulization 2.5 mg inhalation Q4H Qty: 75 0RF omeprazole 40 mg capsule,delayed release(DR/EC) 40 mg PO DAILY desvenlafaxine succinate 50 mg tablet extended release 24 hr 50 mg PO DAILY methylphenidate HCl 36 mg tablet extended release 24hr 36 mg PO QAM Follow Up/Referrals: Anette Garcia PA-C [Primary Care Provider] - Stand Alone Forms: [employer] Info Instructions
[2024-02-27] MEDS: ONDANSETRON 2 MG/ML inj 4 MG IVP (11:09)
[2024-02-27] MEDS: OLANZapine 5 MG/ML inj IVP (11:09)
[2024-02-27] MEDS: 0.9 % SODIUM CHLORIDE 500 ML 500 ML IV (11:09)
[2024-02-27 11:15] LABS: Basophils Percent Auto 0.3 % (0.0-3.0); Eosinophils Percent Auto 0.1 % (0.0-7.0); Hematocrit 43.1 % (33.0-51.0); Hemoglobin* 14.8 gm/dL (12.0-16.0); Immature Granulocytes Pct Auto 0.2 %; Lymphocytes Percent Auto 20.6 % (20-44); Mean Corpuscular HGB Conc 34 gm/dL (32-36); Mean Corpuscular Hemoglobin 30 pg (26-34); Mean Corpuscular Volume 87 fL (80-100); Monocytes Percent Auto 8.9 % (0.0-11.0); Neutrophils Percent Auto 69.9 % (42.0-72.0); Platelet Count* 279 K/uL (140-440); RDW Coefficient of Variation % 12.1 % (11.5-15.5); Red Blood Count 4.96 m/uL (4.00-5.20); White Blood Count* 13.56 K/uL (4.50-11.00)
[2024-02-27 11:22] LABS: Slide Review Reflex No
[2024-02-27 11:27] LABS: Chloride* 101 mmol/L (96-114); Potassium* 3.4 mmol/L (3.6-5.1); Sodium* 134 mmol/L (135-149)
[2024-02-27 11:30] LABS: Anion Gap 11 mEq/L (7-15); Blood Urea Nitrogen* 13 mg/dL (5-24); Carbon Dioxide* 22 mmol/L (20-32); Creatinine* 0.6 mg/dL (0.5-1.5); Estimated Glomerular Filt Rate 128 ml/min; Glucose* 112 mg/dL (60-115)
[2024-02-27 11:31] LABS: Calcium* 9.8 mg/dL (8.4-10.6)
[2024-02-27 11:41] LABS: HCG Qualitative Serum* Negative (Negative)
== END 2024-02-27 13:15 | disposition home or self-care (01) ==
PROVIDERS: Emergency Provider Family Medicine; PCP Physician Assistant
DX: F12.188 Cannabis abuse with other cannabis-induced disorder (principal); R11.10 Vomiting, unspecified
CPT/HCPCS: 36415; 74019; 80048; 84703; 85025; 96374; 96375; 99284; J2405; J7030

== ENCOUNTER 2024-07-26 18:30 | Emergency (ER) | payer OTHER, SELFPAY ==
--- OUTSIDE RECORDS SUMMARY | 2024-07-26 18:32 | XMS_ITS | Clinical Summary ---
Author Organization [facility] [facility] Address [address] [place] [address] Care Team Providers Care Marketing Summer Intern Name Role Phone Anette Garcia Primary Care Provider [phone] Madi Hernadez MD Unavailable [phone] Vinita Agustin RN Unavailable [phone] Unavailable [phone] Allergies Active Allergy Reactions Criticality Noted Date Comments Nickel Rash 12/29/2018 Nsaids (Non-Steroidal Anti-I nflammatory Drug) GI Upset 07/11/2020 Medications BIOTIN ORAL Take 1 tablet by mouth once daily. Strength unknown. Active cholecalciferol, Vitamin D3, (VITAMIN D-3) 5,000 unit tab tabletIndications: S/P laparoscopic sleeve gastrectomy Take 1 tablet by mouth once daily. 90 tablet 12/21/19 20 Active ferrous sulfate, 65 mg elemental, tabletIndications: S/P laparoscopic sleeve gastrectomy Take 1 tablet by mouth once daily with a meal. 90 tablet 12/21/19 20 Active cyanocobalamin (VITAMIN B12) 1,000 mcg tablet Take 1,000 mcg by mouth once daily. Active diphenhydrAMINE (BENADRYL) 25 mg tablet Take 50 mg by mouth at bedtime if needed for Sleep. Active ondansetron (ZOFRAN ODT) 4 mg disintegrating tabletIndications: Nausea and vomiting, unspecified vomiting type Place 1 Tablet (4 mg) on the tongue every 8 hours if needed for Nausea/Vomiting . 15 Tablet 01/06/20 24 Active albuterol HFA (PRO-AIR; VENTOLIN; PROVENTIL) 90 mcg/actuation inhalerIndications :Mild intermittent asthma without complication (HC) Inhale 1-2 Puffs by mouth every 4 hours if needed for Shortness Of Breath or Wheezing. 18 g 11 01/18/20 24 Active desvenlafaxine succinate (PRISTIQ) 50 mg Extended-Release tabletIndications: ION (generalized anxiety disorder) Take 1 Tablet (50 mg) by mouth once daily in the morning. 90 Tablet 1 02/07/20 24 Active levonorgestrel (MIRENA) 20 mcg/24 hours (8 yrs) 52 mg intrauterine device (IUD)Indications:E ncounter for IUD removal and reinsertion Inject 1 Device intrauterine one time for 1 dose. 1 Each 03/16/20 24 Active omeprazole (PRILOSEC) 40 mg Delayed-Release capsuleIndications :Chronic GERD Take 1 Capsule (40 mg) by mouth once daily. 90 Capsule 2 03/19/20 24 Active methylphenidate HCl (Ritalin) 10 mg tabletIndications: ADHD (attention deficit hyperactivity disorder), combined type Take 1 tablet (10mg) once daily in the morning. 30 Tablet 06/26/19 25 Active methylphenidate 36 mg extended-release tabletIndications: ADHD (attention deficit hyperactivity disorder), combined type Take 1 Tablet (36 mg) by mouth once daily. 30 Tablet 06/26/19 25 Active guanFACINE 1 mg tabletIndications: Generalized anxiety disorder Take 1 Tablet (1 mg) by mouth two times daily. 180 Tablet 06/30/19 25 Active guanFACINE 1 mg tabletIndications: Generalized anxiety disorder Take 1 Tablet (1 mg) by mouth two times daily. 180 Tablet 03/30/20 24 025 Discontin ued(Reord er (E-cancel not sent)) Hospital, Clinic, or Other Facility Administered Medication Ordered Dose Route Frequency Start Date End Date Status levonorgestrel (MIRENA) 20 mcg/24 hours (8 yrs) 52 mg intrauterine device (IUD) 1 DeviceIndications:Encounter for IUD removal and reinsertion 1 Device IU Q 5 YEARS 03/17/2024 Active Active Problems Problem Noted Date Diagnosed Date Gastritis 02/16/2023 Pap smear for cervical cancer screening 09/08/19 23 Overview (10/13/2022): 09/2022 NIL Plan: Pap/HPV due in 3 years Depression 05/23/2022 Cannabinoid hyperemesis syndrome 05/23/2022 ION (generalized anxiety disorder) 01/28/2021 Migraine headache 05/15/2020 09/08/2022 History of alcoholism 02/04/2020 09/08/2022 Moderate episode of recurrent major depressive d isorder 02/04/2020 09/08/2022 IUD (intrauterine device) in place 05/01/2019 Morbid obesity with BMI of 45.0-49.9, adult 08/08 S/P laparoscopic sleeve gastrectomy 08/24/2018 Obesity 08/15/2017 Environmental allergies 08/15/2017 Generalized anxiety disorder 08/15/2017 Moderate single current epis ode of major depressive disorder 04/23/2017 Mild intermittent asthma without complication Calculus of gallbladder with out cholecystitis without obstruction Esophagitis Resolved Problems Problem Noted Date Diagnosed Date Resolved Date Tobacco use 08/15/2017 09/27/2019 Alcohol use 08/15/2017 09/27/2019 Encounter for initial prescr iption of contraceptives 03/14/2015 04/20/2017 Encounters Date Type Department Care Team Description 06/29/2024 Refill [facility] [address] [place] [phone] Jessica Olivier, SALES COMMISSIONS ANALYST Refill Request (guanfacine) 06/27/2024 Telephone [facility] [address] [place] [phone] Jessica Olivier NP Medication Management (METHYLPHENIDATE 36 MG ER) 06/12/2024 Telephone [facility] [address] [place] [phone] Jessica Olivier, SALES COMMISSIONS ANALYST Refill Request from Last 3 Months Immunizations Immunization Administration Dates Next Due AMB Influenza, IIV4 PF (=>6 mos Flulaval,Fluzone Fluarix)(Flu Clinic Only) 02/07/2019 COVID-19 vaccine (Moderna 100mcg/0.5mL) PF, MDV 01/30/2021,07/30/2020,07/30/2020 DTaP 10/01/2003, 1,1998,08/16,1998 HIB PRP-OMP (PedvaxHIB) 09/26/1999,10/22,1998,05/22 HPV 9 (Gardasil 9) 02/19/2016 Hepatitis B (Peds) 01/15/1999,1998, 998 Human Papilloma Virus Vaccine 03/21/2012 INFLUENZA, IIV3 PF (AGE >= 6 MO) 01/18/2024,12/2008 Inactivated Polio Vaccine 10/01/2003,09/2000,1998,05/22 Influenza Virus, Unspecified 04/09/2017,05/09/20 15,05/29/2010 Influenza, IIV3 (Age >=3 years) 03/28/20 14,03/21/2012,02/14/2009,04/04,03/08/2006 Influenza, IIV4 01/22/2023,,04/09/2020,02/27,02/08/2019,02/19/2016,05/09/2015 MENINGOCOCCAL VACCINE 2 VIAL 2MO-55YO (MENVEO) 09/03/2017 MMR 10/01/2003,09/26/1999 Pneumococcal Conj 20-valent (Prevnar 20) 01/18/2024 Tdap 01/22/2023,12/12/2010 Varicella Vaccine 12/12/2010,03/28/1999 Family History Medical History Relation Name Comments Good Health Father Diabetes Maternal Aunt Cancer-breast Maternal Grandmother and MG GM Good Health Mother Diabetes Other 1 Materal great g randparents Hypertension Other 2 MGGM Heart Disease Other 3 MGGM Cancer Other 4 fsebip-cng-[id number] kins lymphoma Relation Name Status Comments Father Maternal Aunt Maternal Grandmother Mother Other 1 Other 2 Other 3 Other 4 Social History Tobacco Use Types Packs/Day Years Used Date Smoking Tobacco: Former Cigarettes Q uit: 03/25/2018 Smokeless Tobacco: Former Quit: 07/23/2018 Tobacco Cessation:Counseling Given: Not Answered Comments:none Alcohol Use Standard Drinks/Week Comments Yes 4 (1 standard drink = 0.6 oz pur e alcohol) rarely PHQ-2 Answer Date Recorded PHQ-2 TOTAL SCORE 4 03/21/2024 Social Connections Answer Date Recorded Do you often feel lonely or isolated from those around you? 0 04/17/2024 Financial Resource Strain Answer Date R ecorded Difficulty of Paying Living Expenses Not on file 03/16/2024 Difficulty of Paying Living Expenses 3 03/16/2024 Food Insecurity Answer Date Recorded Do you worry your food will run out before you are able to buy more? 1 04/17/2024 Transportation Needs Answer Date Record ed Does lack of transportation keep you from medica l appointments? 1 04/17/2024 Does lack of transportation keep you from work, meetings or getting things that you need? 1 04/17/2024 Housing Stability Answer Date Recorded What is your housing situation today? 1 04/17/2024 Utilities Answer Date Recorded Do you have trouble paying f or utilities (for example, heat, electricity, water, phone)? 2 04/17/2024 Comments No Sex and Gender Information Value Date Recorded Sex Assigned at Not on file Legal Sex Female 5:48 AM FIRE OPERATIONS FORESTER Gender Identity Not on file Sexual Orientation Not on file Occupation Industry Job Start Date Job End Date [employer] Not on file Not on file Not on file STUDENT Not on file Not on file Not on file Obstetrics History Para Term AB IAB SAB Ectopic Multiple Livin g Live Births 0 0 0 0 0 0 0 0 0 0 0 Last Filed Vital Signs Vital Sign Reading Time Taken Comments Blood Pressure 120/70 03/21/2024 11:14 AM FIRE OPERATIONS FORESTER Pulse 71 03/21/2024 11:14 AM FIRE OPERATIONS FORESTER Temperature 36.8 C (98.2 F) 02/16/2023 10:58 AM CDT Respiratory Rate 16 02/16/2023 1:00 PM CDT Oxygen Saturation 97% 01/18/2024 8:56 AM CDT Inhaled Oxygen Concentration - - Weight 115.7 kg (255 lb) 03/16/2024 11:00 AM FIRE OPERATIONS FORESTER Height 176.6 cm (5' 9.53) 03/16/2024 11:00 AM Anthony LE Body Mass Index 37.09 03/16/2024 11:00 AM FIRE OPERATIONS FORESTER Plan of Treatment Upcoming Encounters Date Type Department Care Team (Late st Contact Info) Description 08/02/2024 12:30 PM CDT Telemedicine [facility] [address] [place] [phone] Jessica Olivier, SALES COMMISSIONS ANALYST [address] [place] [phone] Health Maintenance Due Date Last Done Comments HIV for age 15-65 2013 Hepatitis C screening for ag e 18-79 2016 COVID-19 vaccine series ( season) 2024 01/30/2021, 07/30/2020, 07/30/2020 BMI (ht and wt on same day) for age 18+ 03/16/2025 03/16/2024, 01/18/2024, 07/30/2022, Additional history exists Depression screening for age 12+ 03/21/2025 03/21/2024, 02/09/2024, 02/07/2024, Additional history exists Pap test for age 21-65 09/08/2025 , 05/01/2019, 05/01/2019 Tetanus booster 01/22/2033 01/22/2023, 12/12/2010 HPV series for age 9-26 Completed 02/19/2016, 03/21 Tdap Completed 01/22/2023, 12/12/2010 Influenza Vaccine Completed 01/18/2024, , 01/28/2021, Additional history exists Pneumococcal series for age 6-49 Completed 01/18/20 24 Medical Devices Implanted Type Area Tv News Director Device Identifier Shelf Expiration Date Model / Serial / Lot Stent Ent Mini Steroid-Releas ing [employer]el Bio[employer]orb - [id number] Implanted:Qty: 1 on 02/28/2016 by Mamadou Cruz MD at [facility] Left: Nose Intersect [employer] 06/12/2017 [id number] / / [id number] Mesh Ventral 7x10cm Phasix St - [id number] Implanted:Qty: 1 on 08/24/2018 by Madi Hernadez MD at [facility] N/A: Abdomen [employer] 03/06/2020 [id number] / / [id number] Procedures Procedure Name Priority Date/Time Associated Diagnosis Comments 911 OPERATOR THIN PREP PAP SCREEN IMAGED Routine 09/08/2022 1:20 PM CDT Encounter for screening for cervical cancer from Last 3 Months or Most Recently Relevant to Health Maintenance Results * 911 OPERATOR THIN PREP PAP SCREEN IMAGED (09/08/2022 1:20 PM CDT) Case Report Gynecologic Cytology Report Case: [id number] Authorizing Provider: Erlinda Ta NP Collected: 09/08/2022 1320 Ordering Location: [facility] Received: 09/08/2022 1354 Clinic First Screen: Jacinta Hansen Specimen: 911 OPERATOR ThinPrep Vial Screening, Cervical 10/13/2022 9:34 AM CDT [facility] ENTRAL LABORATORY INTERPRETATION/ RESULT NEGATIVE FOR INTRAEPITHELIAL LESION OR MALIGNANCY (NIL) (none) 10/13/2022 9:34 AM CDT [facility] IMEN ADEQUACY Satisfactory for evaluation Endocervical component present 10/13/2022 9:34 AM CDT [facility] Date of LMP IUD 10/13/2022 9:34 AM CDT [facility] Last Pap Date 05/01/19 10/13/2022 9:34 AM CDT [facility] Last Pap Result NIL 9:34 AM CDT [facility] Abnormal Pap or Aiea Bx in last 5 years No 10/13/2022 9:34 AM CDT [facility] Menstrual Status Hormonally Suppressed 10/13/2022 9:34 AM CDT [facility] ENTRAL LABORATORY Aiea Bx Done Today No 10/13/2022 9:34 AM CDT [facility] Additional Information None given 10/13/2022 9:34 AM CDT [facility] Comment: Cytology is screened at [facility] - [address], [place] [address] and [facility] - [address], [place] [address] and [facility] - [address] [place] [address] Interpreted at [facility] - [address] [place] [address] Automated Review Successful 10/13/2022 9:34 AM CDT [facility] Comment:Specimen processed s uccessfully by automated diplomatic interpreter device, [employer] System, [employer] Note The pap test is a screening technique, not a diagnostic procedure. It is used primarily to screen for squamous cancers and precursor lesions. Published studies have shown that it is subject to both false negative and false positive results. The pap test should not be used as the sole means to diagnose or exclude pre-malignant and malignant lesions. 10/13/2022 9:34 AM CDT [facility] Other (Cervical) Non-Blood / Unknown 09/08/2022 1:20 PM CDT 09/08/2022 1:54 PM CDT us Erlinda Ta NP PATHOLOGY/CYTOLOGY Final Res ult [facility] [address] [place] [address], [place] from Last 3 Months or Most Recently Relevant to Health Maintenance Insurance [employer] * Guarantor: ROBIN JORDAN Account Type Relation to Patient Date of Phone Billing Address Third Democrat Liability Spouse [phone] (Home) ATTN: KRYSTEN CHANDRA [address] [place] [id number] Advance Directives * Full Code (Latest Code Status on File) Date Activated Date Inactivated Comments 02/16/2023 10:31 AM 02/16/2023 3:44 PM Question Answer Comments Code Status Discussion: Discussed * Full Code Date Activated Date Inactivated Comments 05/23/2022 9:23 PM 05/24/2022 3:19 PM Question Answer Comments Code Status Discussion: Reviewed Preferences * Full Code Date Activated Date Inactivated Comments 12/24/2020 10:55 AM 12/24/2020 3:44 PM Question Answer Comments Code Status Discussion: Discussed * Full Code Date Activated Date Inactivated Comments 01/02/2019 10:02 AM 01/02/2019 3:57 PM * Full Code Date Activated Date Inactivated Comments 08/24/2018 12:26 PM 08/25/2018 2:54 PM Care Teams Marketing Summer Intern Relationship Specialty Start Date End Date Anette Garcia PA [address] [place] [address] PCP - General Physician Certified Medical Coding Specialist 07/28/17 Madi Hernadez MD [address] [address] Consulting Physician Surgery - General 01/04/18 Vinita Agustin RN [address] [address] Pelletizer 01/04/[address] [id number] Registered Dietitian Touch Up Edger 09/27/18
[2024-07-26 18:36] VITALS: BP 136/80; PULSE 56; RESP 28; TEMP 35.5; O2SAT 100; BMI 38.0
--- NOTE | 2024-07-26 18:56 | ED_ITS ---
HPI - Nausea/Vomiting/Diarrhea General Chief complaint: Nausea/Vomiting Stated complaint: Vomiting Time Seen by Provider: 07/26/24 18:51 History of Present Illness HPI Narrative: This 24-year-old female comes in reporting about 20 episodes of vomiting today. Her vomiting started yesterday and is related to cannibis hyperemesis syndrome. She reports some reflux esophagitis symptoms. She states that she is continuing to use cannabis products. Related Data Home Medications ?Medication ?Instructions ?Recorded ?Confirmed desvenlafaxine succinate 50 mg 50 mg PO DAILY 02/01/23 02/25/24 tablet,extended release 24 hr omeprazole 40 mg capsule,delayed 40 mg PO DAILY 02/01/23 02/25/24 release albuterol sulfate 90 mcg/actuation 2 inh inhalation BID 01/06/24 02/25/24 aerosol inhaler guanfacine 1 mg tablet 1 mg PO DAILY 01/06/24 02/25/24 methylphenidate HCl 10 mg tablet 10 mg PO BID 01/06/24 02/25/24 ondansetron 4 mg disintegrating 4 mg PO Q8H PRN 01/06/24 02/25/24 tablet methylphenidate HCl 36 mg 36 mg PO QAM 02/25/24 02/25/24 tablet,extended release 24 hr Previous Rx's ?Medication ?Instructions ?Recorded albuterol sulfate 2.5 mg/3 mL 2.5 mg (3 mL) inhalation Q4H #75 mL 01/06/24 (0.083 %) solution for nebulization olanzapine 5 mg tablet (Zyprexa) 5 mg PO DAILY PRN #2 tabs 02/27/24 Allergies Allergy/AdvReac Type Severity Reaction Status Date / Time NSAIDS (Non-Steroidal AdvReac Verified 07/26/24 18:35 Anti-Inflamma Review of Systems Status of ROS: Reports: 10 or more systems reviewed and unremarkable except as noted in History and below Narrative: Constitutional: No fevers, no weight gain or loss. Eyes: No discharge. No vision changes. HENT: No congestion, no sore throat, no ear pain. Cardiovascular: No chest pain, no palpitations. Respiratory: No shortness of breath, no wheezes, no cough. Gastrointestinal: No diarrhea. Upper epigastric abdominal pain with persistent vomiting and reflux symptoms. Genitourinary: No dysuria, no hematuria. Musculoskeletal: Normal range of motion. Skin: No rashes, no pruritis. Neurological: No dizziness, weakness, sensory change, speech change. Endo/Heme/Allergies: No bruising or bleeding. No polydipsia. Pysch: no suicidality, no anxiety, no insomnia. All other systems reviewed and are negative. [facility] Social History Smoking Status: Current some day smoker Do you use any of these nicotine containing products: Vaping Products Second hand tobacco smoke exposure: No How often do you have a drink containing alcohol: never AUDIT-C Alcohol total score: 0 Non-prescribed substance use: marijuana (any form) Non-prescribed substance use details: smokes/vapes marijuana daily; aware that this causes her to have hyperemesis service: No Exam Narrative: Exam Narrative: Constitutional: Well-developed, well-nourished, no acute distress. HEENT: Normocephalic, atraumatic. Neck: Normal range of motion. Nontender. Supple. Heart: Regular. No murmurs. Normal rate. Intact distal pulses. Lungs: Clear to auscultation. No chest discomfort. No wheezes, rhonchi, or rales. Abdomen: Normal bowel sounds. Diffuse tenderness in the upper epigastrium. No rebound tenderness. Genitalia: Deferred. Back: No midline tenderness. Normal range of motion. Extremities: Normal range of motion. No injury. Skin: Intact. No rash. Warm. No erythema or pallor. Neurologic: No altered sensation. No weakness. Alert and oriented. Psychiatric: No suicidality. No anxiety or depression. No insomnia. Nursing notes and vitals signs are reviewed. Const: Vital Signs, click to edit/add: Vital Signs - 24 hr 07/26/24 18:36 Temperature 96 F L Pulse Rate [Pulse Oximeter] 56 L Respiratory Rate 28 H Blood Pressure [Ri ght Upper Arm] 136/80 Pulse Oximetry 100 Oxygen Delivery Me thod Room Air Course Vital Signs Vital signs: Initial Vital Signs Temperature 96 F L 07/26/24 18:36 Temperature Source Temporal Artery Scan 07/26/24 18:36 Pulse Rate 56 L 07/26/24 18:36 Respiratory Rate 28 H 07/26/24 18:36 Blood Pressure 136/80 07/26/24 18:36 Blood Pressure Mean 98 07/26/24 18:36 Blood Pressure Position Sitting 07/26/24 18:36 Pulse Oximetry 100 07/26/24 18:36 Oxygen Delivery Method Room Air 07/26/24 18:36 Vital Signs Temperature 96 F L 07/26/24 18:36 Pulse Rate 56 L 07/26/24 18:36 Respiratory Rate 28 H 07/26/24 18:36 Blood Pressure 136/80 07/26/24 18:36 Pulse Oximetry 100 07/26/24 18:36 Oxygen Delivery Method Room Air 07/26/24 18:36 Temperature 96 F L 07/26/24 18:36 Pulse Rate 56 L 07/26/24 18:36 Respiratory Rate 28 H 07/26/24 18:36 Blood Pressure 136/80 07/26/24 18:36 Pulse Oximetry 100 07/26/24 18:36 Oxygen Delivery Method Room Air 07/26/24 18:36 Medications Administered Medications: Generic Name Dose Route Start Last Admin Trade Name Freq PRN Reason Stop Dose Admin Haloperidol Lactate 5 mg 07/26/24 18:54 07/26/24 19:16 Haloperidol 5 Mg/Ml Inj IV 07/26/24 18:55 5 mg ONCE ONE Administration Sodium Chloride 1,000 mls @ 1,000 mls/hr 07/26/24 19:00 07/26/24 19:13 0.9 % Sodium Chloride 1000 Ml IV 07/26/24 19:59 1,000 mls/hr .Q1H ARNOLDO Administration Ketorolac Tromethamine 30 mg 07/26/24 18:54 07/26/24 19:15 Ketorolac 30 Mg/Ml Inj IVP 07/26/24 18:55 30 mg ONCE ONE Administration Pantoprazole Sodium 40 mg 07/26/24 18:54 07/26/24 19:14 Pantoprazole Sodium 40 Mg Inj IVP 07/26/24 18:55 40 mg ONCE ONE Administration MDM - Nausea/Vomiting/Diarrhea MDM Narrative Medical decision making narrative: This patient comes in with hyper emesis due to cannabis use. An IV was established where she received a L of normal saline, Toradol 30 mg, and Haldol 5 mg. This brought great relief to her symptoms. She is okay to return home. I advised her to discontinue all use of cannabis. Discharge Plan Discharge Clinical Impression: Cannabinoid hyperemesis syndrome Patient Disposition: Home w/ Parent or Adult Condition: Improved Additional Instructions: Use [id number] medicines as needed and directed. Avoid cannabis. Follow up with MD return if worsening. Prescriptions: No Action guanfacine 1 mg tablet 1 mg PO DAILY methylphenidate HCl 10 mg tablet 10 mg PO BID ondansetron 4 mg tablet,disintegrating 4 mg PO Q8H PRN albuterol sulfate 90 mcg/actuation HFA aerosol inhaler 2 inh inhalation BID albuterol sulfate 2.5 mg /3 mL (0.083 %) solution for nebulization 2.5 mg inhalation Q4H Qty: 75 0RF omeprazole 40 mg capsule,delayed release(DR/EC) 40 mg PO DAILY desvenlafaxine succinate 50 mg tablet extended release 24 hr 50 mg PO DAILY olanzapine [Zyprexa] 5 mg tablet 5 mg PO DAILY PRNQty: 2 0RF methylphenidate HCl 36 mg tablet extended release 24hr 36 mg PO QAM Follow Up/Referrals: Anette Garcia PA-C [Primary Care Provider] - Stand Alone Forms: Go Kin Packs Info Instructions
--- OUTSIDE RECORDS SUMMARY | 2024-07-26 19:12 | XMS_ITS | Clinical Summary ---
Author Organization [employer] [facility] Address [address] [place] [address] Care Team Providers Care Tool Polisher Name Role Phone Anette Garcia Primary Care Provider [phone] Madi Hernadez MD Unavailable [phone] Vinita Agustin RN Unavailable [phone] Unavailable [phone] Allergies Active Allergy Reactions Criticality Noted Date [...] Type Department Care Team Description 06/29/2024 Refill [facility] [address] [place] [phone] Jessica Olivier, BOX BRANDER Refill Request (guanfacine) 06/27/2024 Telephone [facility] [address] [place] [phone] Jessica Olivier NP Medication Management (METHYLPHENIDATE 36 MG ER) 06/12/2024 Telephone [facility] [address] [place] [phone] Jessica Olivier, BOX BRANDER Refill Request from Last 3 Months Immunizations [...] Disease Other 3 MGGM Cancer Other 4 [id number] kins lymphoma Relation Name Status Comments Father [...] on file Legal Sex Female 5:48 AM PROGRAM PROJECT ANALYST Gender Identity Not on file Sexual Orientation Not on file Occupation Industry Job Start Date Job End Date [employer] Not on file Not on file Not on file STUDENT Not on file Not on file Not on file Obstetrics History Para Term AB IAB SAB Ectopic Multiple Livin g Live Births 0 0 0 0 0 0 0 0 0 0 0 Last Filed Vital Signs Vital Sign Reading Time Taken Comments Blood Pressure 120/70 03/21/2024 11:14 AM PROGRAM PROJECT ANALYST Pulse 71 03/21/2024 11:14 AM PROGRAM PROJECT ANALYST Temperature 36.8 C (98.2 F) 02/16/2023 10:58 AM CDT Respiratory Rate 16 02/16/2023 1:00 PM CDT Oxygen Saturation 97% 01/18/2024 8:56 AM CDT Inhaled Oxygen Concentration - - Weight 115.7 kg (255 lb) 03/16/2024 11:00 AM PROGRAM PROJECT ANALYST Height 176.6 cm (5' 9.53) 03/16/2024 11:00 AM Anthony LE Body Mass Index 37.09 03/16/2024 11:00 AM PROGRAM PROJECT ANALYST Plan of Treatment Upcoming Encounters Date Type Department Care Team (Late st Contact Info) Description 08/02/2024 12:30 PM CDT Telemedicine [facility] [address] [place] [phone] Jessica Olivier, BOX BRANDER [address] [place] [phone] Health Maintenance Due Date Last Done Comments [...] 01/18/20 24 Medical Devices Implanted Type Area Manager Lsw Device Identifier Shelf Expiration Date Model / Serial / Lot Stent Ent Mini Steroid-Releas ing [employer] Bio[employer]orb - [id number] Implanted:Qty: 1 on 02/28/2016 by Mamadou Cruz MD at [facility] Left: Nose Intersect [employer] 06/12/2017 [id number] / / [id number] Mesh Ventral 7x10cm Phasix St - [id number] Implanted:Qty: 1 on 08/24/2018 by Madi Hernadez MD at [facility] N/A: Abdomen [employer] 03/06/2020 [id number] / / [id number] Procedures Procedure Name Priority Date/Time Associated Diagnosis Comments SCOUT SNIPER THIN PREP PAP SCREEN IMAGED Routine 09/08/2022 1:20 PM CDT Encounter for screening for cervical cancer from Last 3 Months or Most Recently Relevant to Health Maintenance Results * SCOUT SNIPER THIN PREP PAP SCREEN IMAGED (09/08/2022 1:20 PM CDT) Case Report Gynecologic Cytology Report Case: [id number] Authorizing Provider: Erlinda Ta NP Collected: 09/08/2022 1320 Ordering Location: [facility] Received: 09/08/2022 1354 Clinic First Screen: Jacinta Hansen Specimen: SCOUT SNIPER ThinPrep Vial Screening, Cervical 10/13/2022 9:34 AM CDT [facility] LABORATORY-C ENTRAL LABORATORY INTERPRETATION/ RESULT NEGATIVE FOR INTRAEPITHELIAL LESION OR MALIGNANCY (NIL) (none) 10/13/2022 9:34 AM CDT [facility] IMEN ADEQUACY Satisfactory for evaluation Endocervical component present 10/13/2022 9:34 AM CDT [facility] LABORATORY-C ENTRAL LABORATORY Date of LMP IUD 10/13/2022 9:34 AM CDT [facility]AT[facility]-C ENTRAL LABORATORY Last Pap Date 05/01/19 10/13/2022 9:34 AM CDT [facility]AT[facility]-C ENTRAL LABORATORY Last Pap Result NIL 9:34 AM CDT [facility] Abnormal Pap or [place] Bx in last 5 years No 10/13/2022 9:34 AM CDT [facility] LABORATORY-C ENTRAL LABORATORY Menstrual Status Hormonally Suppressed 10/13/2022 9:34 AM CDT [facility] LABORATORY-C ENTRAL LABORATORY [place] Bx Done Today No 10/13/2022 9:[address] [facility] Additional Information None given 10/13/2022 9:34 AM CDT [facility] Comment: Cytology is screened at [facility] - [address], [place] [address] and [facility] - [address], [place] [address] and [facility] - [address] [place] [address] Interpreted at [facility] - [address] [place] [address] Automated Review Successful 10/13/2022 9:[address] [facility] Comment:Specimen processed s uccessfully by automated hemodialysis charge nurse device, Tackle GrabPrep Imaging System, [employer] Note The pap test is a [...] and malignant lesions. 10/13/2022 9:[address] [facility] Other (Cervical) Non-Blood / Unknown 09/08/2022 1:20 PM CDT 09/08/2022 1:54 PM CDT us Erlinda Ta NP PATHOLOGY/CYTOLOGY Final Res ult [facility] [address] [place] [address], [place] from Last 3 Months or Most Recently Relevant to Health Maintenance Insurance [employer] * Guarantor: ROBIN JORDAN Account Type Relation to Patient Date of Phone Billing Address Third Constitution Party Liability Spouse [phone] (Home) ATTN: KRYSTEN CHANDRA [phone] [place] [id number] Advance Directives * Full Code (Latest Code [...] 12:26 PM 08/25/2018 2:54 PM Care Teams Tool Polisher Relationship Specialty Start Date End Date Anette Garcia PA [address] [place] [address] PCP - General Physician Linen Manager 07/28/17 Madi Hernadez MD [address] [address] Consulting Physician Surgery - General 01/04/18 Vinita Agustin RN [address] [address] Urgent Care Technician 01/04/[address] [id number] Registered Dietitian School Athletic Director 09/27/18
[2024-07-26] MEDS: 0.9 % SODIUM CHLORIDE 1000 ml 1,000 ML IV (19:13)
[2024-07-26] MEDS: PANTOPRAZOLE SODIUM 40 MG INJ IVP (19:14)
[2024-07-26] MEDS: KETOROLAC 30 MG/ML inj IVP (19:15)
[2024-07-26] MEDS: HALOPERIDOL 5 MG/ML INJ IV (19:16)
[2024-07-26 20:15] VITALS: BP 126/72; PULSE 58; RESP 20; O2SAT 99
== END 2024-07-26 20:17 | disposition home or self-care (01) ==
PROVIDERS: Emergency Provider Emergency Medicine Emergency Medical Services; PCP Physician Assistant
DX: F12.188 Cannabis abuse with other cannabis-induced disorder (principal)
CPT/HCPCS: 96374; 96375; 99284; J1630; J1885; J2470; J7030

== ENCOUNTER 2024-09-20 19:23 | Emergency (ER) | payer OTHER, SELFPAY ==
[2024-09-20 19:29] VITALS: BP 132/85; PULSE 100; RESP 16; TEMP 36.8; O2SAT 100; BMI 38.4
--- NOTE | 2024-09-20 19:42 | ED.GENADULT ---
HPI - General Adult General Chief complaint: Nausea/Vomiting Stated complaint: vomiting, stomach apin Time Seen by Provider: 09/20/24 19:42 History of Present Illness HPI narrative: Pt reports known Cannabinoid Hyperemesis issues. Smoked Marijuana on wednesday, has had issues with cyclic vomiting since. Current symptoms: abdominal pain, nausea, vomiting. Pt states she has been seen here before for this and we have a pretty good routine for her. 24-year-old young woman presenting to the emergency department with repeated vomiting. Does have a history of cyclic vomiting/hyperemesis thought related to cannabis use. She remains nauseated. Has been vomiting. No hematemesis has been noted. Last treated for same in this emergency department about 2 months ago. No fever. Does treat for gastritis/GERD. Missed a couple days of omeprazole. Had not tried sucralfate which has been available to her before. Accompanied I believe by significant other Related Data Home Medications ?Medication ?Instructions ?Recorded ?Confirmed desvenlafaxine succinate 50 mg 50 mg PO DAILY 02/01/23 02/25/24 tablet,extended release 24 hr omeprazole 40 mg capsule,delayed 40 mg PO DAILY 02/01/23 02/25/24 release albuterol sulfate 90 mcg/actuation 2 inh inhalation BID 01/06/24 02/25/24 aerosol inhaler guanfacine 1 mg tablet 1 mg PO DAILY 01/06/24 02/25/24 methylphenidate HCl 10 mg tablet 10 mg PO BID 01/06/24 02/25/24 ondansetron 4 mg disintegrating 4 mg PO Q8H PRN 01/06/24 02/25/24 tablet methylphenidate HCl 36 mg 36 mg PO QAM 02/25/24 02/25/24 tablet,extended release 24 hr Previous Rx's ?Medication ?Instructions ?Recorded albuterol sulfate 2.5 mg/3 mL 2.5 mg (3 mL) inhalation Q4H #75 mL 01/06/24 (0.083 %) solution for nebulization olanzapine 5 mg tablet (Zyprexa) 5 mg PO DAILY PRN #2 tabs 02/27/24 Allergies Allergy/AdvReac Type Severity Reaction Status Date / Time NSAIDS (Non-Steroidal AdvReac Verified 07/26/24 18:35 Anti-Inflamma Review of Systems Status of ROS: Reports: 6 or more systems reviewed and unremarkable except as noted in History and below [facility] Social History Smoking Status: Current some day smoker Do you use any of these nicotine containing products: Vaping Products Second hand tobacco smoke exposure: No How often do you have a drink containing alcohol: never AUDIT-C Alcohol total score: 0 Non-prescribed substance use: marijuana (any form) Non-prescribed substance use details: smokes/vapes marijuana daily; aware that this causes her to have hyperemesis service: No Exam Narrative: Exam Narrative: Seated upright. Appears uncomfortable. Was little flushed. Skin is diaphoretic notably over her back. Breathing easily. Emesis bag in the right hand. Abdomen is soft. Tender in the epigastrium. Well-perfused peripherally. Const: Vital Signs, click to edit/add: Vital Signs - 24 hr 09/20/24 19:29 Temperature 98.3 F Pulse Rate [Pulse Oximeter] 100 Respiratory Rate 16 Blood Pressure [Ri ght Upper Arm] 132/85 Pulse Oximetry 100 Oxygen Delivery Me thod Room Air Documenting provider has reviewed patient's vital signs: yes Course Vital Signs Vital signs: Initial Vital Signs Temperature 98.3 F 09/20/24 19:29 Temperature Source Temporal Artery Scan 09/20/24 19:29 Pulse Rate 100 09/20/24 19:29 Respiratory Rate 16 09/20/24 19:29 Blood Pressure 132/85 09/20/24 19:29 Blood Pressure Mean 100 09/20/24 19:29 Blood Pressure Position Sitting 09/20/24 19:29 Pulse Oximetry 100 09/20/24 19:29 Oxygen Delivery Method Room Air 09/20/24 19:29 Vital Signs Temperature 98.3 F 09/20/24 19:29 Pulse Rate 100 09/20/24 19:29 Respiratory Rate 16 09/20/24 19:29 Blood Pressure 132/85 09/20/24 19:29 Pulse Oximetry 100 09/20/24 19:29 Oxygen Delivery Method Room Air 09/20/24 19:29 Temperature 98.3 F 09/20/24 19:29 Pulse Rate 100 09/20/24 19:29 Respiratory Rate 16 09/20/24 19:29 Blood Pressure 132/85 09/20/24 19:29 Pulse Oximetry 100 09/20/24 19:29 Oxygen Delivery Method Room Air 09/20/24 19:29 Medications Administered Medications: Discontinued Medications Generic Name Dose Route Start Last Admin Trade Name Miko PRN Reason Stop Dose Admin Sodium Chloride 1,000 mls @ 1,000 mls/hr 09/20/24 19:50 09/20/24 20:47 0.9 % Sodium Chloride 1000 Ml IV 09/20/24 20:49 Infused .Q1H ONE Infusion Ketorolac Tromethamine 30 mg 09/20/24 19:50 09/20/24 20:16 Ketorolac 30 Mg/Ml Inj IVP 09/20/24 19:51 30 mg ONCE ONE Administration Olanzapine 5 mg 09/20/24 19:50 09/20/24 20:19 Olanzapine 5 Mg/Ml Inj IVP 09/20/24 19:51 5 mg ONCE ONE Administration Ondansetron HCl 4 mg 09/20/24 19:50 09/20/24 20:18 Ondansetron 2 Mg/Ml Inj IVP 09/20/24 19:51 4 mg ONCE ONE Administration Medical Decision Making MDM Narrative Medical decision making narrative: Does appear to be typical presentation. No red flags otherwise noted. On review of records appears to generally have stable chemistries. Discussed options and settled on treatment here today. IV was established. Given normal saline, olanzapine, Zofran and ketorolac. During time in the emergency department was overall improved. Was requesting departure. See patient discharge plan for further discussion I am happy you are feeling better. Focus on hydration. Slow advance of diet over the next 24-36 hours. Diluted juices, broths, toast, rice, crackers. Regular dosing of omeprazole might be helpful. Famotidine can be helpful to reduce acid more quickly. Consider taking your sucralfate regularly for a few weeks. However, it sounds to me like you know your major trigger. Medical Records Medical records reviewed: Yes I reviewed the patient's medical records Discharge Plan Discharge Clinical Impression: Cyclic vomiting syndrome Patient Disposition: Home w/ Parent or Adult Condition: Improved Additional Instructions: I am happy you are feeling better. Focus on hydration. Slow advance of diet over the next 24-36 hours. Diluted juices, broths, toast, rice, crackers. Regular dosing of omeprazole might be helpful. Famotidine can be helpful to reduce acid more quickly. Consider taking your sucralfate regularly for a few weeks. However, it sounds to me like you know your major trigger. Prescriptions: No Action guanfacine 1 mg tablet 1 mg PO DAILY methylphenidate HCl 10 mg tablet 10 mg PO BID ondansetron 4 mg tablet,disintegrating 4 mg PO Q8H PRN albuterol sulfate 90 mcg/actuation HFA aerosol inhaler 2 inh inhalation BID albuterol sulfate 2.5 mg /3 mL (0.083 %) solution for nebulization 2.5 mg inhalation Q4H Qty: 75 0RF omeprazole 40 mg capsule,delayed release(DR/EC) 40 mg PO DAILY desvenlafaxine succinate 50 mg tablet extended release 24 hr 50 mg PO DAILY olanzapine [Zyprexa] 5 mg tablet 5 mg PO DAILY PRNQty: 2 0RF methylphenidate HCl 36 mg tablet extended release 24hr 36 mg PO QAM Follow Up/Referrals: Anette Garcia PA-C [Primary Care Provider, Family Practice] Stand Alone Forms: Veronica Info Instructions
[2024-09-20] MEDS: KETOROLAC 30 MG/ML inj IVP (20:16)
[2024-09-20] MEDS: 0.9 % SODIUM CHLORIDE 1000 ml 1,000 ML IV (20:16)
[2024-09-20] MEDS: ONDANSETRON 2 MG/ML inj 4 MG IVP (20:18)
[2024-09-20] MEDS: OLANZapine 5 MG/ML inj IVP (20:19)
== END 2024-09-20 21:11 | disposition home or self-care (01) ==
PROVIDERS: Emergency Provider Family Medicine; PCP Physician Assistant
DX: R11.15 Cyclical vomiting syndrome unrelated to migraine (principal); F12.90 Cannabis use, unspecified, uncomplicated; Z72.0 Tobacco use
CPT/HCPCS: 96374; 96375; 99284; J1885; J2405; J7030